=== PATIENT | female | born 1995 | race Caucasian/White ===

== ENCOUNTER 2023-09-20 02:16 | Emergency (ER) | payer OTHER ==
--- NOTE | 2023-09-20 02:42 | ED Physician Documentation ---
PD HPI NVD - Stated complaint Stated Complaint: CHEST/DIZZY/N/D/V - Chief complaint Chief Complaint: Abd Pain - History obtained from History obtained from: Patient - History of Present Illness Timing - onset: How many hours ago (12), Yesterday Timing - duration: Hours (12) Timing - details: Abrupt onset (felt lightheaded and dizzy during flight from [facility] to here and onset of vomiting soon after arrival. Has had repetitive vomiting forcefully oten since then, and persists into evening/night. Has had now chest pain with vomiting. No hematemesis.), Still present Associated symptoms: Abdominal pain (mid abdomen cramping pain worse prior to vomiting, but still mild continually.), Chest pain (this evening after vomiting multiple times.). No: Fever, Hematemesis Contributing factors: No: Sick contact (was visiting family: there Wed/ overnight flight, and returned Wednesday morning.), Bad food Improved by: No: Eating, Vomiting Worsened by: Eating Similar symptoms before: Has not had sx before Recently seen: Not recently seen Review of Systems Constitutional: reports: Chills, Myalgias. denies: Fever Nose: reports: Congestion. denies: Rhinorrhea / runny nose Throat: denies: Sore throat Respiratory: denies: Cough GI: reports: Abdominal Pain, Nausea, Vomiting, Diarrhea (loose stools several times.). denies: Hematemesis, Bloody / black stool : denies: Dysuria Neurologic: reports: Generalized weakness, Near syncope. denies: Syncope, Altered mental status PD PAST MEDICAL HISTORY - Past Medical History Past Medical History: No - Past Surgical History Past Surgical History: No - Present Medications Home Medications: Ambulatory Orders Medication Instructions Recorded Confirmed Ondansetron Odt [Zofran] 4 mg TL Q6H PRN #10 tablet 09/20/23 Promethazine Supp [Phenergan Supp] 25 mg MD Q6H PRN #5 supp 09/20/23 - Allergies Allergies/Adverse Reactions: Allergies Allergy/AdvReac Type Severity Reaction Status Date / Time No Known Drug Allergies Allergy Verified 09/20/23 02:34 - Social History Does the pt smoke?: No Smoking Status: Never smoker Does the pt drink ETOH?: Yes ETOH Use: Wine, Beer, Liquor Does the pt have substance abuse?: No - Immunizations Immunizations are current?: Yes - POLST Patient has POLST: No PD ED PE NORMAL - Vitals Vital signs reviewed: Yes - General General: Alert and oriented X 3, Well developed/nourished, Other (appears uncomfortable in ER, holding emesis bag. ) - HEENT HEENT: Pharynx benign. No: Moist mucous membranes - Neck Neck: Supple, no meningeal sign, No adenopathy - Cardiac Cardiac: No murmur. No: RRR (tachycardic but regular. ) - Respiratory Respiratory: No respiratory distress, Clear bilaterally - Abdomen Abdomen: Normal bowel sounds, Non distended, Other (tender mid abd with some local guarding. No rebound. Not tender RLQ nor RUQ in particular. ) - Back Back: No CVA TTP - Derm Derm: Warm and dry. No: Normal color (somewhat pale on arrival. ) - Extremities Extremities: No edema, No calf tenderness / cord - Neuro Neuro: Alert and oriented X 3, No motor deficit, Normal speech Results - Vitals Vitals: Vital Signs - 24 hr 09/20/23 09/20/23 09/20/23 02:27 04:27 05:06 Temperature 36.7 C Heart Rate 136 H 119 H 118 H Respiratory 22 23 21 Rate Blood Pressure 123/78 124/75 107/69 O2 Saturation 99 100 100 Oxygen O2 Source Room air - Labs Labs: Laboratory Tests 09/20/23 09/20/23 09/20/23 02:39 02:39 03:38 WBC 20.0 H RBC 5.61 H Hgb 15.6 Hct 46.5 MCV 82.9 MCH 27.8 MCHC 33.5 RDW 12.4 Plt Count 254 MPV 9.5 Neut # (Auto) 18.3 H Lymph # (Auto) 0.4 L Yates # (Auto) 1.1 H Eos # (Auto) 0.0 Baso # (Auto) 0.1 Absolute Nucleated RBC 0.00 Nucleated RBC % 0.0 Manual Slide Review Indicated Platelet Estimate NORMAL (130-450,000) Platelet Morphology NORMAL APPEARANCE Sodium 138 Potassium 3.8 Chloride 102 BUN 14 Creatinine 0.7 Estimated GFR (MDRD) 100 Glucose 179 H Calcium 9.4 Total Bilirubin 1.4 H AST 18 ALT 14 Alkaline Phosphatase 46 Total Protein 6.7 Albumin 4.8 Globulin 1.9 L Albumin/Globulin Ratio 2.5 H Lipase 25 Urine Color LIGHT YELLOW Urine Clarity CLOUDY Urine pH 6.0 Ur Specific [place] 1.020 Urine Protein NEGATIVE Urine Glucose (UA) NEGATIVE Urine Ketones >=80 H Urine Occult Blood NEGATIVE Urine Nitrite NEGATIVE Urine Bilirubin NEGATIVE Urine Urobilinogen 0.2 (NORMAL) Ur Leukocyte Esterase TRACE H Urine RBC None Seen Urine WBC 0-3 Ur Squamous Epith Cells MANY Squamous H Urine Bacteria Rare Ur Microscopic Review INDICATED Urine Culture Comments NOT INDICATED Urine HCG, Qual 09/20/23 03:38 WBC RBC Hgb Hct MCV MCH MCHC RDW Plt Count MPV Neut # (Auto) Lymph # (Auto) Yates # (Auto) Eos # (Auto) Baso # (Auto) Absolute Nucleated RBC Nucleated RBC % Manual Slide Review Platelet Estimate Platelet Morphology Sodium Potassium Chloride BUN Creatinine Estimated GFR (MDRD) Glucose Calcium Total Bilirubin AST ALT Alkaline Phosphatase Total Protein Albumin Globulin Albumin/Globulin Ratio Lipase Urine Color Urine Clarity Urine pH Ur Specific [place] Urine Protein Urine Glucose (UA) Urine Ketones Urine Occult Blood Urine Nitrite Urine Bilirubin Urine Urobilinogen Ur Leukocyte Esterase Urine RBC Urine WBC Ur Squamous Epith Cells Urine Bacteria Ur Microscopic Review Urine Culture Comments Urine HCG, Qual NEGATIVE PD Medical Decision Making - ED course Complexity details: reviewed results (Elevated white count of 20,000 but no noted bands. Chemistry panel does not show any acute abnormality. Urinalysis is without infection. test is negative.), re-evaluated patient (Reevaluation of the patient after IV fluids and medications of Zofran and Toradol was improved nausea and able to drink fluids. Significantly decreased pain. Recheck abdomen still has some tenderness in the periumbilical area. Not tender in the right lower quadrant nor the gallbladder area. ), considered differential (Abrupt onset nausea and repetitive vomiting with some loose stool and generalized abdominal crampy pains. Seems most likely food related or viral gastroenteritis. Initial abdomen exam is fairly tender in the mid abdomen. We will give IV fluids and get labs and urine test. Hold thought imaging. ), d/w patient ED course: The patient's symptom pattern is suggestive of an acute gastroenteritis. She is tender in the central abdomen and a little bit generally. She was having some chest discomfort after vomiting a lot but no hematemesis. Presume some esophageal irritation but does not sound like esophageal rupture nor [place]. I held on imaging to begin with as she was not particularly tender in concerning areas such as appendix or gallbladder. Recheck of the abdomen after some fluids and medicines still had some central tenderness without peritoneal signs. Still not tender right lower quadrant nor right upper quadrant per se. Discussion with the patient and her that I did not feel that these were the problems at the moment. To recheck if persistent pains or localizes in different areas and they are agreeable with this. The patient's white count is elevated but that is nonspecific. She is able to tolerate fluids and water here without pain. She is feeling improved. Vital signs are still showing some tachycardia. Heart sounds appear normal and lungs are clear. She had had an EKG that did not show any acute abnormalities because of the chest discomfort. She is not having chest pain at this time. At the time of considering discharge for the patient, she states she was starting to have an increased amount of pain in the mid abdomen and increased nausea again. This had been one of my markers or indicators I had talked with him about 4 returning for evaluation and since she is already still here with increasing symptoms, shared discussion and decision was to give some extra medication for pain and nausea but to now get a CT scan. They are in agreement. The abdomen is increasing in tenderness but still in the mid abdomen location. Departure - Departure Clinical Impression: Intractable nausea and vomiting, Abdominal pain, periumbilic Condition: Stable Record reviewed to determine appropriate education?: Yes Instructions: ED Abdominal Pain Female Non-Specific Abdominal Pain Follow-Up: REGULO Gutierrez [Provider Group] Prescriptions: Promethazine Supp [Phenergan Supp] 25 mg MD Q6H PRN #5 supp PRN Reason: Nausea / Vomiting Ondansetron Odt [Zofran] 4 mg TL Q6H PRN #10 tablet PRN Reason: Nausea / Vomiting Comments: This may have been a viral or food related gastroenteritis with irritation of the intestines and stomach. I think the pain in your chest area relates to irritation of the esophagus and some of the diaphragm muscles related to the repeated vomiting. I believe this is the cause for much of your belly pain as well. This can certainly be his general irritation of the intestine related to the "stomach flu". We did do a CT scan to evaluate for more significant causes. For persistent nausea you can use ondansetron every 4-6 hours if needed. If vomiting despite that, you could try promethazine suppository as well. I sent prescriptions for these to the [facility] pharmacy. Tylenol if needed for pains. Antacids such as Maalox or Mylanta as well. Small frequent fluids today and bland food and progress diet as tolerated later and into tomorrow. Return if not improving well. Forms: PCP List
[2023-09-20 02:46] LABS: BASOPHILS # (AUTO) 0.1 10^3/uL (0.0-0.1); BASOPHILS % (AUTO) 0.3 %; HCT - HEMATOCRIT 46.5 % (37.0-47.0); HGB - HEMOGLOBIN 15.6 g/dL (12.0-16.0); LYMPHOCYTES # (AUTO) 0.4 10^3/uL (1.5-3.5); LYMPHOCYTES % (AUTO) 2.1 %; MEAN CORPUSCULAR HEMOGLOBIN 27.8 pg (27.0-31.0); MEAN CORPUSCULAR HGB CONC 33.5 g/dL (32.0-36.0); MEAN CORPUSCULAR VOLUME 82.9 fL (81.0-99.0); MEAN PLATELET VOLUME 9.5 fL (7.9-10.8); MONOCYTES # (AUTO) 1.1 10^3/uL (0.0-1.0); MONOCYTES % (AUTO) 5.5 %; NEUTROPHILS # (AUTO) 18.3 10^3/uL (1.5-6.6); NEUTROPHILS % (AUTO) 91.8 %; PLT - PLATELET COUNT 254 10^3/uL (130-450); RED BLOOD COUNT 5.61 10^6/uL (4.20-5.40); RED CELL DISTRIBUTION WIDTH 12.4 % (12.0-15.0)
[2023-09-20 02:48] LABS: SLIDE REVIEW? Indicated
[2023-09-20] MEDS ORDERED: SODIUM CHLORIDE 0.9% 1,000 ML IV STA ×3 (02:53→06:05)
[2023-09-20] MEDS ORDERED: KETOROLAC 15 MG/ML VIAL IVP STA (02:53)
[2023-09-20] MEDS ORDERED: ONDANSETRON 4 MG/2 ML VIAL IVP STA ×2 (02:53→06:35)
[2023-09-20] MEDS ORDERED: FAMOTIDINE 20 MG/2 ML VIAL IVP STA (02:54)
[2023-09-20 03:14] LABS: PLATELET ESTIMATE, MANUAL NORMAL (130-450,000) (NORMAL); PLATELET MORPHOLOGY NORMAL APPEARANCE (NORMAL)
[2023-09-20] MEDS ORDERED: MAG HYDROX/AL HYDROX/SIMETH 30 ML UDC PO STA (03:44)
[2023-09-20 04:07] LABS: BILIRUBIN,URINE NEGATIVE (NEGATIVE); GLUCOSE, URINE (UA) NEGATIVE (NEGATIVE); KETONES,URINE (UA) >=80 mg/dL (NEGATIVE); LEUKOCYTE ESTERASE, URINE TRACE (NEGATIVE); NITRITE,URINE NEGATIVE (NEGATIVE); OCCULT BLOOD,URINE NEGATIVE (NEGATIVE); PROTEIN,URINE NEGATIVE (NEGATIVE); UROBILINOGEN,URINE 0.2 (NORMAL) E.U./dL (NORMAL)
[2023-09-20 04:20] LABS: CLARITY,URINE CLOUDY (CLEAR)
[2023-09-20 04:21] LABS: BACTERIA,URINE Rare /HPF (None Seen); HCG UR QUAL NEGATIVE; RBC,URINE None Seen /HPF (0-5); SQUAMOUS EPITHELIAL CELL,UR MANY Squamous (<= Few); WBC,URINE 0-3 /HPF (0-5)
[2023-09-20 05:27] LABS: ALBUMIN 4.8 g/dL (3.2-5.5)
[2023-09-20 05:54] LABS: ALBUMIN/GLOBULIN RATIO 2.5 (1.0-2.2); BILIRUBIN,TOTAL 1.4 mg/dL (0.2-1.0); TOTAL PROTEIN 6.7 g/dL (6.4-8.9)
[2023-09-20 05:55] LABS: CALCIUM 9.4 mg/dL (8.5-10.3); CREATININE 0.7 mg/dL (0.6-1.3); POTASSIUM 3.8 mmol/L (3.5-4.5)
[2023-09-20] MEDS ORDERED: ONDANSETRON ODT 4 MG Prepack 2 TL PRN (06:05)
[2023-09-20] MEDS ORDERED: HYDROmorphone 0.5 MG/0.5 ML SYRINGE IVP STA (06:35)
--- NOTE | 2023-09-20 08:09 | CT Report ---
PROCEDURE: ABDOMEN/PELVIS W INDICATIONS: mid abd pain and vomiting x 12 hrs. CONTRAST: 100ml omni 300 TECHNIQUE: After the administration of the contrast, 5 mm thick sections acquired from the diaphragms to the sym physis. 5 mm thick coronal and sagittal reformats were acquired. For radiation dose reduction, the following was used: automated exposure control, adjustment of mA and/or kV according to patient size . COMPARISON: None FINDINGS: Image quality: Excellent. Lung bases and heart: Unremarkable. Liver: No solid mass. Gallbladder and biliary tree: Normal gallbladder. No biliary dilation. Spleen: No splenomegaly. Pancreas: No pancreatic ductal dilation. Adrenals: No adrenal nodule. Kidneys and ureters: No hydronephrosis. No renal cystic lesion which requires follow up. No solid mas s. Bowel and peritoneum: Stomach is nondistended. Small bowel and proximal colon are filled with fluid, demonstrating normal caliber. Appendix is normal. Moderate amount of stool in the distal colon. No pa thologic free fluid. Lymph nodes: No central or retroperitoneal adenopathy. Vessels: No infrarenal aortic aneurysm. PELVIS Reproductive organs: There is a 1.5 cm cyst in the left ovary with rim enhancement, probably a corpus luteum. Uterus and right ovary are unremarkable. No free fluid in pelvis. Bladder: No abnormal wall thickening, accounting for underdistension. Pelvic lymph nodes: No pelvic adenopathy by size criteria. Bones: No aggressive osseous abnormality. Other: No significant ventral or inguinal hernia. IMPRESSION: 1. Fluid-filled small intestine and proximal colon with normal caliber, suggesting enteritis. 2. Normal appendix. 3. A 1.5 cm corpus luteal cyst in the left ovary. Reviewed by: Gloria Owusu MD on 09/20/2023 8:07 AM PST Approved by: Gloria Owusu MD on 09/20/2023 8:07 AM PST Station ID: [id number]
[2023-09-20] MEDS ORDERED: iohexoL-300 100 ML VIAL IVP ONE (08:24)
--- NOTE | 2023-09-20 08:37 | ED Physician Documentation ---
ED Addendum - Addendum Addendum: 09/20/23 08:37 Labs and imaging reviewed. Patient does have elevated white blood cell count, however CT imaging is negative for acute findings other than possible enteritis. This can be managed conservatively at home. Symptomatic control discussed with patient. Medications to pharmacy.
[2023-09-20 08:39] VITALS: BP 109/76; O2SAT 98
== END 2023-09-20 08:43 | disposition home or self-care (01) ==
LOC: ED 02:16
DX: R11.2 Nausea with vomiting, unspecified (principal); R10.2 Pelvic and perineal pain
CPT/HCPCS: 36415; 74177; 80053; 81001; 81025; 83690; 83735; 85025; 96374; 96375; 96376; 99284; 99285; A9270; J1170; Q9967; 81003; 87086